=== PATIENT | female | born 1995 | race African-American/Black ===

== ENCOUNTER 2024-10-19 12:29 | Emergency (ER) | payer OTHER ==
[2024-10-19 12:50] VITALS: RESP 16; TEMP 98.8; BMI 26.5
[2024-10-19] MEDS ORDERED: DIPHTH,PERTUSS(ACELL),TET 0.5 ML DISP.SYRIN IM ONE (13:12)
[2024-10-19] MEDS: DIPHTH,PERTUSS(ACELL),TET 0.5 ML DISP.SYRIN IM ONE (13:15)
[2024-10-19] MEDS ORDERED: ACETAMINOPHEN 325 MG TABLET (FP) ONE (13:37)
[2024-10-19] MEDS: ACETAMINOPHEN 325 MG TABLET (FP) PO ONE (13:39)
[2024-10-19 14:29] VITALS: BP 122/68; PULSE 89
[2024-10-19 14:48] LABS: HEMATOCRIT 41.9 % (32.4-45.2); HEMOGLOBIN 13.6 G/dL (10.7-15.3); MCH 29.3 pg (25.7-33.7); MCHC 32.4 g/dl (32.0-36.0); MEAN CELL VOLUME 90.6 fl (80-96); MEAN PLT VOLUME 7.8 fl (7.5-11.1); PLATELET COUNT 230.7 10^3/uL (134-434); RBC 4.63 10^6/uL (3.60-5.2); RDW 13.8 % (11.6-15.6); WHITE BLOOD COUNT 6.7 10^3/uL (4.0-10.8)
[2024-10-19 14:59] LABS: ALK PHOS 32 U/L (45-117); ANION GAP 10 mmol/L (4-13); BILIRUBIN,TOTAL 0.3 mg/dl (0.2-1); CALCIUM 10.1 mg/dl (8.5-10.1); CHLORIDE 100 mmol/L (98-107); CO2 28 mmol/L (21-32); CREATININE 0.9 mg/dl (0.6-1.3); GLUCOSE,RANDOM 150 mg/dl (74-106); POTASSIUM 4.1 mmol/L (3.5-5.1); SGOT/AST 14 U/L (15-37); SGPT/ALT 12 U/L (7-52); SODIUM 138 mmol/L (136-145); TOT PROT 7.5 g/dl (6.4-8.2)
[2024-10-19 16:09] LABS: PLATELET ESTIMATE ADEQUATE
== END 2024-10-19 14:25 | disposition short-term general hospital (02) ==
LOC: FER 12:29
PROC: 3E0234Z Introduction of Serum, Toxoid and Vaccine into Muscle, Percutaneous Approach (ICD-10-PCS; principal; 2024-10-19)
DX: S00.11XA Contusion of right eyelid and periocular area, initial encounter (principal); Z20.822 Contact with and (suspected) exposure to COVID-19; Z23 Encounter for immunization; W22.8XXA Striking against or struck by other objects, initial encounter; Y99.0 Civilian activity done for income or pay
CPT/HCPCS: 0241U-QW; 36415; 70450-TC; 70480-TC; 80053; 81025; 85027; 90715; 99285-25